=== PATIENT | female | born 1985 | race Caucasian/White ===

== ENCOUNTER 2016-07-14 11:02 | Emergency (ER) | payer SELFPAY ==
[2016-07-14] MEDS ORDERED: Sodium Chloride 0.9% 2.5 ML Syringe FLUSH PRN (11:20)
[2016-07-14] MEDS ORDERED: Sodium Chloride 0.9% 1,000 ML IV ONE (11:20)
[2016-07-14] MEDS ORDERED: Ketorolac 30 MG/ML SDV IVPUSH ONE (11:20)
[2016-07-14] MEDS ORDERED: Ondansetron 4 MG/2 ML SDV IVPUSH ONE (11:20)
[2016-07-14] MEDS ORDERED: Sodium Chloride 0.9% 10 ML Syringe FLUSH PRN (11:20)
--- NOTE | 2016-07-14 11:22 | EDM.PDOC ---
ED HPI GENERAL MEDICAL PROBLEM - General Chief Complaint: Abdominal Pain Stated Complaint: STOMACH AND BACK PAIN Time Seen by Provider: 07/14/16 11:05 - History of Present Illness INITIAL COMMENTS - FREE TEXT/NARRATIVE: HISTORY AND PHYSICAL: History of present illness: Patient is 30-year-old white female history chronic back pain present since her right lower back pain and now radiates around her abdomen she took Motrin for this and states this is worse in she states she's had nausea associated with this she denies vomiting she denies vaginal discharge or other bleeding urinary symptoms denies other trauma concern recently. She denies states her last normal menstrual period was one week prior patient denies incontinence or retention of bowel or bladder denies numbness or weakness Review of systems: As per history of present illness and below otherwise all systems reviewed and negative. Past medical history: As per history of present illness and as reviewed below otherwise noncontributory. Surgical history: As per history of present illness and as reviewed below otherwise noncontributory. Social history: No reported history of drug or alcohol abuse. Family history: As per history of present illness and as reviewed below otherwise noncontributory. Physical exam: HEENT: Atraumatic, normocephalic, pupils reactive, negative for conjunctival pallor or scleral icterus, mucous membranes moist, throat clear, neck supple, nontender, trachea midline. Lungs: Clear to auscultation, breath sounds equal bilaterally, chest nontender. Heart: S1S2, regular, negative for clicks, rubs, or JVD. Abdomen: Soft, nondistended, no localized tenderness. Negative for masses or hepatosplenomegaly. Negative for costovertebral tenderness. Pelvis: Stable nontender. Genitourinary: Deferred. Rectal: Deferred. Extremities: Atraumatic, negative for cords or calf pain. Neurovascular unremarkable. Neuro: Awake, alert, oriented. Cranial nerves II through XII unremarkable. Cerebellum unremarkable. Motor and sensory unremarkable throughout. Exam nonfocal. Back: Patient some mild tenderness in paravertebral region at the low lumbar spine no vertebral body or point tenderness motor and sensory are normal based able stand on her toes back on her heels deep tendon reflexes are normal Diagnostics: CBC CMP UA hCG CT abdomen and Therapeutics: Normal saline 1 L bolus Zofran 4 mg IV Toradol 30 mg IV Impression: #1 chronic back pain with acute exacerbation #2 abdominal pain Definitive disposition and diagnosis as appropriate pending reevaluation and review of above. back Pain Score (Numeric/FACES): 10 - Related Data Allergies Allergy/AdvReac Type Severity Reaction Status Date / Time No Known Allergies Allergy Verified 07/14/16 11:14 Home Meds: Home Meds . [No Known Home Meds] 07/14/16 [History] ED ROS GENERAL - Review of Systems Review Of Systems: ROS reveals no pertinent complaints other than HPI. ED EXAM, GENERAL - Physical Exam Exam: See Below (See dictation) Course - Vital Signs Last Recorded V/S: Last Vital Signs Temp 36.4 C 07/14/16 11:17 Pulse 54 L 07/14/16 11:51 Resp 19 07/14/16 11:51 BP 148/94 H 07/14/16 11:51 Pulse Ox 100 07/14/16 11:51 - Orders/Labs/Meds Orders: Active Orders 24 hr Category Date Time Status Abdomen Pelvis wo Cont [CT] Stat Exams 07/14/16 11:20 Taken Sodium Chloride 0.9% [Saline Flush] Med 07/14/16 11:20 Active 10 ml FLUSH ASDIRECTED PRN Sodium Chloride 0.9% [Saline Flush] Med 07/14/16 11:20 Active 2.5 ml FLUSH ASDIRECTED PRN Saline Lock Insert [OM.PC] Stat Oth 07/14/16 11:19 Ordered Medication Orders Sodium Chloride (Saline Flush) 10 ml FLUSH ASDIRECTED PRN PRN Reason: Keep Vein Open Sodium Chloride (Saline Flush) 2.5 ml FLUSH ASDIRECTED PRN PRN Reason: Keep Vein Open Labs: Laboratory Tests 07/14/16 07/14/16 07/14/16 Range/Units 11:25 11:25 11:41 WBC 11.32 H (4.0-11.0) K/uL RBC 5.44 (4.30-5.90) M/uL Hgb 16.3 H (12.0-16.0) g/dL Hct 48.2 H (36.0-46.0) % MCV 88.6 (80.0-98.0) fL MCH 30.0 (27.0-32.0) pg MCHC 33.8 (31.0-37.0) g/dL RDW Std Deviation 43.3 (28.0-62.0) fl RDW Coeff of Cristina 13 (11.0-15.0) % Plt Count 256 (150-400) K/uL MPV 10.00 (7.40-12.00) fL Neut % (Auto) 65.9 (48.0-80.0) % Lymph % (Auto) 24.3 (16.0-40.0) % [place] % (Auto) 6.8 (0.0-15.0) % Eos % (Auto) 2.6 (0.0-7.0) % Baso % (Auto) 0.4 (0.0-1.5) % Neut # (Auto) 7.5 H (1.4-5.7) K/uL Lymph # (Auto) 2.8 H (0.6-2.4) K/uL [place] # (Auto) 0.8 (0.0-0.8) K/uL Eos # (Auto) 0.3 (0.0-0.7) K/uL Baso # (Auto) 0.0 (0.0-0.1) K/uL Nucleated RBC % 0.0 /100WBC Nucleated RBCs # 0 K/uL Sodium (136-146) mmol/L Potassium (3.5-5.1) mmol/L Chloride (98-110) mmol/L Carbon Dioxide (21-31) mmol/L BUN (6.0-23.0) mg/dL Creatinine (0.6-1.5) mg/dL Est Cr Clr Drug Dosing mL/min Estimated GFR (MDRD) ml/min Glucose (60-110) mg/dL Calcium (8.8-10.8) mg/dL Total Bilirubin (0.1-1.5) mg/dL AST (5-40) IU/L ALT (8-54) IU/L Alkaline Phosphatase (40-150) Total Protein (6.0-8.0) g/dL Albumin (3.5-5.0) g/dL Globulin (2.0-3.5) g/dL Albumin/Globulin Ratio (1.3-2.8) HCG, Qual (NEG) Urine Color YELLOW Urine Appearance CLEAR Urine pH 6.0 (5.0-8.0) Ur Specific Dorr 1.025 (1.001-1.035) Urine Protein TRACE (NEGATIVE) mg/dL Urine Glucose (UA) NEGATIVE (NEGATIVE) mg/dL Urine Ketones NEGATIVE (NEGATIVE) mg/dL Urine Occult Blood MODERATE (NEGATIVE) Urine Nitrite NEGATIVE (NEGATIVE) Urine Bilirubin NEGATIVE (NEGATIVE) Urine Urobilinogen 0.2 (<2.0) EU/dL Ur Leukocyte Esterase TRACE (NEGATIVE) Urine RBC 6-8 (0-2/HPF) Urine WBC 0-2 (0-5/HPF) Ur Epithelial Cells FEW (NONE-FEW) Urine Bacteria FEW (NEGATIVE) Urine Opiates Screen NEGATIVE (NEGATIVE) Ur Oxycodone Screen NEGATIVE (NEGATIVE) Urine Methadone Screen NEGATIVE (NEGATIVE) Ur Barbiturates Screen NEGATIVE (NEGATIVE) Ur Phencyclidine Scrn NEGATIVE (NEGATIVE) Ur Amphetamine Screen NEGATIVE (NEGATIVE) U Methamphetamines Scrn NEGATIVE (NEGATIVE) U Benzodiazepines Scrn NEGATIVE (NEGATIVE) U Cocaine Metab Screen NEGATIVE (NEGATIVE) U Marijuana (THC) Screen POSITIVE (NEGATIVE) 07/14/16 07/14/16 Range/Units 11:41 11:41 WBC (4.0-11.0) K/uL RBC (4.30-5.90) M/uL Hgb (12.0-16.0) g/dL Hct (36.0-46.0) % MCV (80.0-98.0) fL MCH (27.0-32.0) pg MCHC (31.0-37.0) g/dL RDW Std Deviation (28.0-62.0) fl RDW Coeff of Cristina (11.0-15.0) % Plt Count (150-400) K/uL MPV (7.40-12.00) fL Neut % (Auto) (48.0-80.0) % Lymph % (Auto) (16.0-40.0) % [place] % (Auto) (0.0-15.0) % Eos % (Auto) (0.0-7.0) % Baso % (Auto) (0.0-1.5) % Neut # (Auto) (1.4-5.7) K/uL Lymph # (Auto) (0.6-2.4) K/uL [place] # (Auto) (0.0-0.8) K/uL Eos # (Auto) (0.0-0.7) K/uL Baso # (Auto) (0.0-0.1) K/uL Nucleated RBC % /100WBC Nucleated RBCs # K/uL Sodium 140 (136-146) mmol/L Potassium 4.4 (3.5-5.1) mmol/L Chloride 111 H (98-110) mmol/L Carbon Dioxide 15 L (21-31) mmol/L BUN 14 (6.0-23.0) mg/dL Creatinine 0.9 (0.6-1.5) mg/dL Est Cr Clr Drug Dosing 82.99 mL/min Estimated GFR (MDRD) > 60.0 ml/min Glucose 104 (60-110) mg/dL Calcium 9.2 (8.8-10.8) mg/dL Total Bilirubin 0.2 (0.1-1.5) mg/dL AST 33 (5-40) IU/L ALT 45 (8-54) IU/L Alkaline Phosphatase 68 (40-150) Total Protein 8.6 H (6.0-8.0) g/dL Albumin 4.7 (3.5-5.0) g/dL Globulin 3.9 H (2.0-3.5) g/dL Albumin/Globulin Ratio 1.2 L (1.3-2.8) HCG, Qual NEGATIVE (NEG) Urine Color Urine Appearance Urine pH (5.0-8.0) Ur Specific Dorr (1.001-1.035) Urine Protein (NEGATIVE) mg/dL Urine Glucose (UA) (NEGATIVE) mg/dL Urine Ketones (NEGATIVE) mg/dL Urine Occult Blood (NEGATIVE) Urine Nitrite (NEGATIVE) Urine Bilirubin (NEGATIVE) Urine Urobilinogen (<2.0) EU/dL Ur Leukocyte Esterase (NEGATIVE) Urine RBC (0-2/HPF) Urine WBC (0-5/HPF) Ur Epithelial Cells (NONE-FEW) Urine Bacteria (NEGATIVE) Urine Opiates Screen (NEGATIVE) Ur Oxycodone Screen (NEGATIVE) Urine Methadone Screen (NEGATIVE) Ur Barbiturates Screen (NEGATIVE) Ur Phencyclidine Scrn (NEGATIVE) Ur Amphetamine Screen (NEGATIVE) U Methamphetamines Scrn (NEGATIVE) U Benzodiazepines Scrn (NEGATIVE) U Cocaine Metab Screen (NEGATIVE) U Marijuana (THC) Screen (NEGATIVE) Meds: Medications Generic Name Dose Route Start Last Admin Trade Name Freq PRN Reason Stop Dose Admin Sodium Chloride 10 ml 07/14/16 11:20 Saline Flush FLUSH ASDIRECTED PRN Keep Vein Open Sodium Chloride 2.5 ml 07/14/16 11:20 Saline Flush FLUSH ASDIRECTED PRN Keep Vein Open Discontinued Medications Generic Name Dose Route Start Last Admin Trade Name Rowan PRN Reason Stop Dose Admin Sodium Chloride 1,000 mls @ 999 mls/hr 07/14/16 11:20 07/14/16 11:44 Normal Saline IV 07/14/16 12:20 999 mls/hr STAT ONE Administration Ketorolac Tromethamine 30 mg 07/14/16 11:20 07/14/16 11:45 Toradol IVPUSH 07/14/16 11:21 30 mg ONETIME ONE Administration Ketorolac Tromethamine 15 mg 07/14/16 12:22 07/14/16 12:25 Toradol IVPUSH 07/14/16 12:23 15 mg STAT ONE Administration Ondansetron HCl 4 mg 07/14/16 11:20 07/14/16 11:45 Zofran IVPUSH 07/14/16 11:21 4 mg ONETIME ONE Administration Departure - Departure Time of Disposition: 13:18 Disposition: Home, Self-Care 01 Condition: good Clinical Impression: Ureterolithiasis - Discharge Information Referrals: PCP,None [Primary Care Provider] - Forms: ED Department Discharge Additional Instructions: The following information is given to patients seen in the emergency department who are being discharged to home. This information is to outline your options for follow-up care. We provide all patients seen in our emergency department with a follow-up referral. The need for follow-up, as well as the timing and circumstances, are variable depending upon the specifics of your emergency department visit. If you don't have a primary care physician on staff, we will provide you with a referral. We always advise you to contact your personal physician following an emergency department visit to inform them of the circumstance of the visit and for follow-up with them and/or the need for any referrals to a consulting specialist. The emergency department will also refer you to a specialist when appropriate. This referral assures that you have the opportunity for followup care with a specialist. All of these measure are taken in an effort to provide you with optimal care, which includes your followup. Under all circumstances we always encourage you to contact your private physician who remains a resource for coordinating your care. When calling for followup care, please make the office aware that this follow-up is from your recent emergency room visit. If for any reason you are refused follow-up, please contact the [facility] emergency department at and asked to speak to the emergency department charge nurse. [facility] Specialty Care - Urology [address] [place] [id number] Hydrocodone Zofran Flomax as prescribed call schedule routine appointment with urology about return as needed as discussed - My Orders Last 24 Hours: My Active Orders 07/14/16 11:19 Saline Lock Insert [OM.PC] Stat 07/14/16 11:20 Abdomen Pelvis wo Cont [CT] Stat Sodium Chloride 0.9% [Saline Flush] 10 ml FLUSH ASDIRECTED PRN Sodium Chloride 0.9% [Saline Flush] 2.5 ml FLUSH ASDIRECTED PRN - Assessment/Plan Last 24 Hours: My Active Orders 07/14/16 11:19 Saline Lock Insert [OM.PC] Stat 07/14/16 11:20 Abdomen Pelvis wo Cont [CT] Stat Sodium Chloride 0.9% [Saline Flush] 10 ml FLUSH ASDIRECTED PRN Sodium Chloride 0.9% [Saline Flush] 2.5 ml FLUSH ASDIRECTED PRN
[2016-07-14 12:22] LABS: CHLORIDE,CL 111 mmol/L (98-110); SODIUM,NA 140 mmol/L (136-146)
[2016-07-14] MEDS ORDERED: Ketorolac 15 MG/ML SDV IVPUSH ONE (12:22)
[2016-07-14 13:50] VITALS: BP 136/97
--- NOTE | 2016-07-15 14:08 | CT ---
EXAM DATE: 07/14/16 PATIENT'S AGE: 30 Patient: MJ BERNAL Facility: [place], [place] Site . Site : [id number] Study: CT Abdomen/Pelvis -07/14/2016 12:44:35 PM Ordering Physician: Sejal Johnson Final Report: HISTORY: Sudden onset right flank pain. Technique: CT abdomen pelvis without contrast. Comparison: None. Findings: Urinary system: 5 mm calculus at the right ureterovesical junction. Moderate right hydronephrosis. A few punctate nonobstructing left renal calculi that measure up to 2 mm in size. No left ureteral calculi. No left collecting system dilation. Abdomen: Heterogeneous decreased density of the liver consistent with fatty infiltration. Calcified granulomas in the spleen. Gallbladder and pancreas are unremarkable. Adrenal glands are unremarkable. No dilated bowel. Appendix is normal. No ascites. No free intraperitoneal gas. No lymphadenopathy. No abdominal aortic aneurysm. Pelvis: No free fluid. No lymphadenopathy. Musculoskeletal: Remote posttraumatic deformity of the lateral right ribs. Lower chest: Lung bases are clear. Impression: 1. 5 mm calculus at the right ureterovesical junction with moderate hydronephrosis. 2. Punctate nonobstructing left renal calculi. 3. Fatty infiltration of the liver. Please note that all CT scans at this facility use dose modulation, iterative reconstruction, and/or weight-based dosing when appropriate to reduce radiation dose to as low as reasonably achievable. Dictated by Mateusz Evans MD @ Jul 14 2016 1:02PM (Electronic Signature) Report Signed by Proxy. [facility] SYSTEMTyson
== END 2016-07-14 13:45 | disposition home or self-care (01) ==
LOC: MW.ED 11:02
DX: N20.1 Calculus of ureter (principal)
CPT/HCPCS: 36415; 74176; 80053; 80305; 81001; 84703; 85025; 96361; 96374; 96375; 96376; 99284; J1885; J2405; J7040

== ENCOUNTER 2016-10-01 08:12 | Emergency (ER) | payer SELFPAY ==
[2016-10-01] MEDS ORDERED: Ketorolac 30 MG/ML SDV IVPUSH ONE (08:30)
--- NOTE | 2016-10-01 08:39 | EDM.PDOC ---
<Feroz Lerner - Last Filed: 10/01/16 10:40> ED HPI GENERAL MEDICAL PROBLEM - General Chief Complaint: Back Pain or Injury Stated Complaint: BACK PAIN Time Seen by Provider: 10/01/16 08:14 - History of Present Illness INITIAL COMMENTS - FREE TEXT/NARRATIVE: HISTORY AND PHYSICAL: History of present illness: The 30-year-old female presenting to the emergency department with chief complaint of back pain after a fall. Patient tells me that last night she had a fall walking down her staircase outside. She'll down 3 steps. She immediately began to experience lower back pain that is non-radiating. She has been able to walk after the incident. She denies any urinary/bowel issues after the incident. Denies any numbness or tingling. Denies shortness of breath, nausea, or vomiting. Review of systems: As per history of present illness and below otherwise all systems reviewed and negative. Past medical history: As per history of present illness and as reviewed below otherwise noncontributory. Surgical history: As per history of present illness and as reviewed below otherwise noncontributory. Social history: No reported history of drug or alcohol abuse. Family history: As per history of present illness and as reviewed below otherwise noncontributory. Physical exam: HEENT: Atraumatic, normocephalic, pupils reactive, negative for conjunctival pallor or scleral icterus, mucous membranes moist, throat clear, neck supple, nontender, trachea midline. Lungs: Clear to auscultation, breath sounds equal bilaterally, chest nontender. Heart: S1S2, regular, negative for clicks, rubs, or JVD. Abdomen: Soft, nondistended, nontender. Negative for masses or hepatosplenomegaly. Negative for costovertebral tenderness. Spine: No spinal tenderness to palpation. No paraspinal tenderness. Negative SLR. Normal gait. Extremities: Atraumatic, negative for cords or calf pain. Neurovascular unremarkable. Neuro: Awake, alert, oriented. Cranial nerves II through XII unremarkable. Cerebellum unremarkable. Motor and sensory unremarkable throughout. Exam nonfocal. Diagnostics: Lumbar Spine X-ray B-hcg [employer]rapeutics: IM Toradol 30mg once Impression: Lumbosacral strain Plan: Discharge home. Follow up with PCP within 1 week. Lower Back Pain Score (Numeric/FACES): 10 - Related Data Allergies Allergy/AdvReac Type Severity Reaction Status Date / Time No Known Allergies Allergy Verified 10/01/16 08:13 Home Meds: Home Meds Orphenadrine [Norflex] 100 mg PO BID #15 tab.er 10/01/16 [Rx] Past Medical History HEENT History: Reports: None Cardiovascular History: Reports: None Respiratory History: Reports: None Gastrointestinal History: Reports: None Genitourinary History: Reports: None Musculoskeletal History: Reports: Other (See Below) Other Musculoskeletal History: lumbar problem Psychiatric History: Reports: None Dermatologic History: Reports: None - Infectious Disease History Infectious Disease History: Reports: Chicken Pox - Past Surgical History HEENT Surgical History: Reports: None Cardiovascular Surgical History: Reports: None Social & Family History - Family History Family Medical History: Noncontributory - Tobacco Use Smoking Status *Q: Current Every Day Smoker Years of Tobacco use: 10 Packs/Tins Daily: 0.2 - Caffeine Use Caffeine Use: Reports: Energy Drinks - Recreational Drug Use Recreational Drug Use: No ED ROS GENERAL - Review of Systems Review Of Systems: See Below ED EXAM,LOWER BACK PAIN/INJURY - Physical Exam Exam: See Below Course - Vital Signs Last Recorded V/S: Last Vital Signs Temp 36.5 C 10/01/16 08:14 Pulse 82 10/01/16 09:53 Resp 18 10/01/16 09:53 BP 130/85 10/01/16 09:53 Pulse Ox 99 10/01/16 09:53 - Orders/Labs/Meds Labs: Laboratory Tests 10/01/16 Range/Units 08:47 Urine HCG, Qual NEGATIVE (NEGATIVE) Meds: Medications Discontinued Medications Generic Name Dose Route Start Last Admin Trade Name Rowan PRN Reason Stop Dose Admin Ketorolac Tromethamine 30 mg 10/01/16 08:30 10/01/16 08:43 Toradol IVPUSH 10/01/16 08:31 30 mg ONETIME ONE Administration Departure - Departure Time of Disposition: 10:40 Disposition: Home, Self-Care 01 Condition: Good Clinical Impression: Pain of paraspinal muscle - Discharge Information Prescriptions: Orphenadrine [Norflex] 100 mg PO BID #15 tab.er Instructions: Muscle Cramps and Spasms, [id number] Referrals: PCP,None [Primary Care Provider] - Forms: ED Department Discharge Additional Instructions: The following information is given to patients seen in the emergency department who are being discharged to home. This information is to outline your options for follow-up care. We provide all patients seen in our emergency department with a follow-up referral. The need for follow-up, as well as the timing and circumstances, are variable depending upon the specifics of your emergency department visit. If you don't have a primary care physician on staff, we will provide you with a referral. We always advise you to contact your personal physician following an emergency department visit to inform them of the circumstance of the visit and for follow-up with them and/or the need for any referrals to a consulting specialist. The emergency department will also refer you to a specialist when appropriate. This referral assures that you have the opportunity for follow-up care with a specialist. All of these measure are taken in an effort to provide you with optimal care, which includes your follow-up. Under all circumstances we always encourage you to contact your private physician who remains a resource for coordinating your care. When calling for follow-up care, please make the office aware that this follow-up is from your recent emergency room visit. If for any reason you are refused follow-up, please contact the [facility] Emergency Department at and asked to speak to the emergency department charge nurse. Please follow up with her primary care provider within one week. Please take prescription as prescribed. She experienced any fevers chills worsening back pain, coronary numbness tingling, or any difficulty urinating please return back to seek further medical attention. <Roshni Guillen - Last Filed: 10/01/16 10:56> ED HPI GENERAL MEDICAL PROBLEM - History of Present Illness INITIAL COMMENTS - FREE TEXT/NARRATIVE: I have seen and discussed this patient with Dr. Lerner and agree with the above.
--- NOTE | 2016-10-01 10:40 | CR ---
Three-view lumbar spine Pedicles are intact to discs are well-maintained and vertebral bodies are of normal stature. There i s no spondylolysis or spondylolisthesis. There is a very gentle leftward convex scoliosis apex at L3 that may be positional Impression: No significant abnormalities
[2016-10-01 11:00] VITALS: BP 143/80
== END 2016-10-01 10:57 | disposition home or self-care (01) ==
LOC: MW.ED 08:12
DX: S39.012A Strain of muscle, fascia and tendon of lower back, initial encounter (principal); F17.210 Nicotine dependence, cigarettes, uncomplicated; W10.8XXA Fall (on) (from) other stairs and steps, initial encounter
CPT/HCPCS: 72100; 81025; 96374; 99284; J1885; 99283

== ENCOUNTER 2018-09-07 18:28 | Emergency (ER) | payer SELFPAY ==
--- NOTE | 2018-09-07 18:35 | EDM.PDOC ---
ED HPI GENERAL MEDICAL PROBLEM - General Stated Complaint: STROKE Time Seen by Provider: 09/07/18 18:30 - History of Present Illness INITIAL COMMENTS - FREE TEXT/NARRATIVE: HISTORY AND PHYSICAL: History of present illness: Patient 32-year-old white female who presents with carpal pedal spasm and anxiety she's had similar episode in the past and has been diagnosed with conversion reaction. She denies chest pain short breath other concern she has quite cognizant that this may very well represent anxiety and similar episode prior. She does agree to some routine testing while she's here Review of systems: As per history of present illness and below otherwise all systems reviewed and negative. Past medical history: As per history of present illness and as reviewed below otherwise noncontributory. Surgical history: As per history of present illness and as reviewed below otherwise noncontributory. Social history: No reported history of drug or alcohol abuse. Family history: As per history of present illness and as reviewed below otherwise noncontributory. Physical exam: HEENT: Atraumatic, normocephalic, pupils reactive, negative for conjunctival pallor or scleral icterus, mucous membranes moist, throat clear, neck supple, nontender, trachea midline. Lungs: Clear to auscultation, breath sounds equal bilaterally, chest nontender. Heart: S1S2, regular, negative for clicks, rubs, or JVD. Abdomen: Soft, nondistended, nontender. Negative for masses or hepatosplenomegaly. Negative for costovertebral tenderness. Pelvis: Stable nontender. Genitourinary: Deferred. Rectal: Deferred. Extremities: Atraumatic, negative for cords or calf pain. Neurovascular unremarkable. Carpopedal spasm noted bilateral upper extremities Neuro: Awake, alert, oriented. Cranial nerves II through XII unremarkable. Cerebellum unremarkable. Motor and sensory unremarkable throughout. Exam nonfocal. Diagnostics: CBC CMP EKG Therapeutics: Ativan 1 mg IV Impression: #1 acute anxiety with carpopedal spasm Definitive disposition and diagnosis as appropriate pending reevaluation and review of above. - Related Data Allergies Allergy/AdvReac Type Severity Reaction Status Date / Time aspirin Allergy Other Verified 09/07/18 18:37 Home Meds: Home Meds Ibuprofen 6 tab PO DAILY PRN 09/21/17 [History] hydrOXYzine pamoate [Hydroxyzine Pamoate] 50 mg PO TID PRN 09/07/18 [History] Past Medical History HEENT History: Reports: None Cardiovascular History: Reports: None Respiratory History: Reports: None Gastrointestinal History: Reports: None Genitourinary History: Reports: None Musculoskeletal History: Reports: Other (See Below) Other Musculoskeletal History: lumbar problem Neurological History: Reports: Other (See Below) 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 ED EXAM, GENERAL - Physical Exam Exam: See Below (See dictation) Course - Vital Signs Last Recorded V/S: Last Vital Signs Temp 36.6 C 09/07/18 18:33 Pulse 85 09/07/18 18:33 Resp 16 09/07/18 18:33 BP 181/95 H 09/07/18 18:33 Pulse Ox 99 09/07/18 18:33 - Orders/Labs/Meds Orders: Active Orders 24 hr Category Date Time Status EKG 12 Lead [EKG Documentation Completion] [RC] STAT Care 09/07/18 18:35 Active CBC WITH AUTO DIFF [HEME] Stat Lab 09/07/18 18:45 Received COMPREHENSIVE METABOLIC PN,CMP [CHEM] Stat Lab 09/07/18 18:45 Received Sodium Chloride 0.9% [Saline Flush] Med 09/07/18 18:36 Active 10 ml FLUSH ASDIRECTED PRN Sodium Chloride 0.9% [Saline Flush] Med 09/07/18 18:36 Active 2.5 ml FLUSH ASDIRECTED PRN Saline Lock Insert [OM.PC] Stat Oth 09/07/18 18:36 Ordered Medication Orders Sodium Chloride (Saline Flush) 10 ml FLUSH ASDIRECTED PRN PRN Reason: Keep Vein Open Last Admin: 09/07/18 18:49 Dose: 10 ml Sodium Chloride (Saline Flush) 2.5 ml FLUSH ASDIRECTED PRN PRN Reason: Keep Vein Open Last Admin: 09/07/18 18:49 Dose: 2.5 ml Meds: Medications Generic Name Dose Route Start Last Admin Trade Name Freq PRN Reason Stop Dose Admin Sodium Chloride 10 ml 09/07/18 18:36 09/07/18 18:49 Saline Flush FLUSH 10 ml ASDIRECTED PRN Administration Keep Vein Open Sodium Chloride 2.5 ml 09/07/18 18:36 09/07/18 18:49 Saline Flush FLUSH 2.5 ml ASDIRECTED PRN Administration Keep Vein Open Discontinued Medications Generic Name Dose Route Start Last Admin Trade Name Freq PRN Reason Stop Dose Admin Lorazepam 1 mg 09/07/18 18:36 09/07/18 18:48 Ativan IVPUSH 09/07/18 18:37 1 mg ONETIME ONE Administration Departure - Departure Time of Disposition: 18:59 Disposition: Home, Self-Care 01 Condition: Good Clinical Impression: Anxiety, Carpopedal spasm - Discharge Information Additional Instructions: The following information is given to patients seen in the emergency department who are being discharged to home. This information is to outline your options for follow-up care. We provide all patients seen in our emergency department with a follow-up referral. The need for follow-up, as well as the timing and circumstances, are variable depending upon the specifics of your emergency department visit. If you don't have a primary care physician on staff, we will provide you with a referral. We always advise you to contact your personal physician following an emergency department visit to inform them of the circumstance of the visit and for follow-up with them and/or the need for any referrals to a consulting specialist. The emergency department will also refer you to a specialist when appropriate. This referral assures that you have the opportunity for followup care with a specialist. All of these measure are taken in an effort to provide you with optimal care, which includes your followup. Under all circumstances we always encourage you to contact your private physician who remains a resource for coordinating your care. When calling for followup care, please make the office aware that this follow-up is from your recent emergency room visit. If for any reason you are refused follow-up, please contact the [facility] emergency department at and asked to speak to the emergency department charge nurse. Continue current medications follow-up private medical doctor return as needed as discussed - My Orders Last 24 Hours: My Active Orders 09/07/18 18:35 EKG 12 Lead [EKG Documentation Completion] [RC] STAT 09/07/18 18:36 Sodium Chloride 0.9% [Saline Flush] 10 ml FLUSH ASDIRECTED PRN Sodium Chloride 0.9% [Saline Flush] 2.5 ml FLUSH ASDIRECTED PRN Saline Lock Insert [OM.PC] Stat 09/07/18 18:45 CBC WITH AUTO DIFF [HEME] Stat COMPREHENSIVE METABOLIC PN,CMP [CHEM] Stat - Assessment/Plan Last 24 Hours: My Active Orders 09/07/18 18:35 EKG 12 Lead [EKG Documentation Completion] [RC] STAT 09/07/18 18:36 Sodium Chloride 0.9% [Saline Flush] 10 ml FLUSH ASDIRECTED PRN Sodium Chloride 0.9% [Saline Flush] 2.5 ml FLUSH ASDIRECTED PRN Saline Lock Insert [OM.PC] Stat 09/07/18 18:45 CBC WITH AUTO DIFF [HEME] Stat COMPREHENSIVE METABOLIC PN,CMP [CHEM] Stat
[2018-09-07] MEDS ORDERED: LORazepam 2 MG/ML SDV IVPUSH ONE (18:36)
[2018-09-07] MEDS ORDERED: Sodium Chloride 0.9% 10 ML Syringe FLUSH PRN (18:36)
[2018-09-07] MEDS ORDERED: Sodium Chloride 0.9% 2.5 ML Syringe FLUSH PRN (18:36)
[2018-09-07 19:23] LABS: CHLORIDE,CL 105 mmol/L (98-107); SODIUM,NA 139 mmol/L (136-145)
[2018-09-07 23:44] VITALS: BP 171/121
== END 2018-09-07 20:14 | disposition home or self-care (01) ==
LOC: MW.ED 18:28
DX: R29.0 Tetany (principal); F41.9 Anxiety disorder, unspecified; Z88.6 Allergy status to analgesic agent; Z79.899 Other long term (current) drug therapy
CPT/HCPCS: 36415; 80053; 85025; 93005; 96374; 99283; J2060

== ENCOUNTER 2019-03-17 15:05 | Emergency (ER) | payer MEDICAID ==
--- NOTE | 2019-03-17 15:30 | EDM.PDOC ---
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 Patient states that she had intercourse on Thursday. On Thursday night, she had vaginal bleeding with the passage of clots and tissue. Since that time , she has had light vaginal spotting, but, today, again had the passage of a small amount of clots along with lower abdominal crampy pain. Patient has chronic mild back pain. Denies any syncope. No chest pain dyspnea, vomiting or diarrhea. Denies any urinary symptoms. No diarrhea or constipation. No melena hematochezia. No recent fevers or chills. 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 REVIEW OF SYSTEMS: Other than the symptoms associated with the present events, the following is reported with regard to recent health: General: (-) fever. HENT: (-) congestion. Respiratory: (-) cough. Cardiovascular: (-) chest pain. GI: (+) crampy lower pelvic pain. : (-) urinary complaints. (+) vaginal bleeding Musculoskeletal: (-) other aches or pains. Endocrine: (-) generalized weakness. Neurological: (-) localized weakness. Skin: (-) rash PAST MEDICAL HISTORY: reviewed as per nursing notes SOCIAL HISTORY: reviewed as per nursing notes, MEDICATIONS: Per nurse's note ALLERGIES: Per nurse's note, reviewed by me PHYSICAL EXAMINATION: GENERALIZED APPEARANCE: well developed, well nourished in no distress VITAL SIGNS: Per nurse's note, reviewed by me SKIN: Warm, dry; (-) cyanosis; (-) rash. HEAD: (-) scalp swelling, (-) tenderness. EYES: (-) conjunctival pallor, (-) scleral icterus. ENMT: (-) stridor; mucous membranes moist. NECK: (-) tenderness, (-) stiffness, CHEST AND RESPIRATORY: (-) rales, (-) rhonchi, (-) wheezes; breath sounds equal bilaterally. HEART AND CARDIOVASCULAR: (-) irregularity; (-) murmur, (-) gallop. ABDOMEN AND GI: Soft; (-) tenderness, (-) guarding, (-) rebound, (-) palpable masses, EXTREMITIES: (-) deformity, (-) edema. NEURO AND PSYCH: Alert. Cranial nerves grossly intact; strength symmetric. gait steady DIAGNOSTICS: ultrasound: read by radiologist, reviewed by myself EMERGENCY DEPARTMENT COURSE AND TREATMENT: Patient's condition remained stable during Emergency Department evaluation. ultrasound demonstrating live IUP with fhr of 104 bpm. Pt hemodynamicaly stable. Rh positive. Pt with threatened miscarriage, given discharge precautions and instructions. PLAN AND FOLLOW-UP: Patient received written and verbal instructions regarding this condition. Return to ED immediately with any new or worsening symptoms. Follow up to be arranged by patient with OB in 1-2 days for further evaluation. Given discharge precautions. Patient expressed verbal understanding. Back Pain Score (Numeric/FACES): 6 - Related Data Allergies Allergy/AdvReac Type Severity Reaction Status Date / Time aspirin Allergy Other Verified 03/17/19 15:23 latex Allergy Itching Verified 03/17/19 15:23 Home Meds: Home Meds . 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 Psychiatric History: Reports: None Dermatologic History: Reports: None - Infectious Disease History Infectious Disease History: Reports: Chicken Pox - Past Surgical History HEENT Surgical History: Reports: None Cardiovascular Surgical History: Reports: None Social & Family History - Family History Family Medical History: Noncontributory - Tobacco Use Smoking Status *Q: Current Every Day Smoker Years of Tobacco use: 12 Packs/Tins Daily: 0.5 - Caffeine Use Caffeine Use: Reports: Energy Drinks ED ROS GENERAL - Review of Systems Review Of Systems: See Below (see dictation) ED EXAM, GENERAL - Physical Exam Exam: See Below (see dictation) Course - Vital Signs Last Recorded V/S: Last Vital Signs Temp 97.7 F 03/17/19 15:19 Pulse 90 03/17/19 15:19 Resp 16 03/17/19 15:19 BP 149/90 H 03/17/19 15:19 Pulse Ox 98 03/17/19 15:19 - Orders/Labs/Meds Orders: Active Orders 24 hr Category Date Time Status Pelvic Exam, Set Up [RC] ASDIRECTED Care 03/17/19 15:30 Active Labs: Laboratory Tests 03/17/19 03/17/19 03/17/19 Range/Units 15:26 15:26 15:52 WBC 12.28 H (4.0-11.0) K/uL RBC 4.86 (4.30-5.90) M/uL Hgb 14.5 (12.0-16.0) g/dL Hct 43.6 (36.0-46.0) % MCV 89.7 (80.0-98.0) fL MCH 29.8 (27.0-32.0) pg MCHC 33.3 (31.0-37.0) g/dL RDW Std Deviation 45.0 (28.0-62.0) fl RDW Coeff of Cristina 14 (11.0-15.0) % Plt Count 251 (150-400) K/uL MPV 9.70 (7.40-12.00) fL Neut % (Auto) 70.0 (48.0-80.0) % Lymph % (Auto) 21.0 (16.0-40.0) % [place] % (Auto) 6.4 (0.0-15.0) % Eos % (Auto) 2.2 (0.0-7.0) % Baso % (Auto) 0.4 (0.0-1.5) % Neut # (Auto) 8.6 H (1.4-5.7) K/uL Lymph # (Auto) 2.6 H (0.6-2.4) K/uL [place] # (Auto) 0.8 (0.0-0.8) K/uL Eos # (Auto) 0.3 (0.0-0.7) K/uL Baso # (Auto) 0.1 (0.0-0.1) K/uL Nucleated RBC % 0.0 /100WBC Nucleated RBCs # 0 K/uL HCG, Quant mIU/mL Urine Color YELLOW Urine Appearance HAZY Urine pH 7.0 (5.0-8.0) Ur Specific [place] 1.025 (1.001-1.035) Urine Protein NEGATIVE (NEGATIVE) mg/dL Urine Glucose (UA) NEGATIVE (NEGATIVE) mg/dL Urine Ketones NEGATIVE (NEGATIVE) mg/dL Urine Occult Blood LARGE H (NEGATIVE) Urine Nitrite NEGATIVE (NEGATIVE) Urine Bilirubin NEGATIVE (NEGATIVE) Urine Urobilinogen 0.2 (<2.0) EU/dL Ur Leukocyte Esterase NEGATIVE (NEGATIVE) Urine RBC 3-8 (0-2/HPF) Urine WBC 0-3 (0-5/HPF) Ur Epithelial Cells OCCASIONAL (NONE-FEW) Urine Bacteria FEW (NEGATIVE) Urine HCG, Qual POSITIVE (NEGATIVE) Blood Type 03/17/19 03/17/19 Range/Units 15:52 15:52 WBC (4.0-11.0) K/uL RBC (4.30-5.90) M/uL Hgb (12.0-16.0) g/dL Hct (36.0-46.0) % MCV (80.0-98.0) fL MCH (27.0-32.0) pg MCHC (31.0-37.0) g/dL RDW Std Deviation (28.0-62.0) fl RDW Coeff of Cristina (11.0-15.0) % Plt Count (150-400) K/uL MPV (7.40-12.00) fL Neut % (Auto) (48.0-80.0) % Lymph % (Auto) (16.0-40.0) % [place] % (Auto) (0.0-15.0) % Eos % (Auto) (0.0-7.0) % Baso % (Auto) (0.0-1.5) % Neut # (Auto) (1.4-5.7) K/uL Lymph # (Auto) (0.6-2.4) K/uL [place] # (Auto) (0.0-0.8) K/uL Eos # (Auto) (0.0-0.7) K/uL Baso # (Auto) (0.0-0.1) K/uL Nucleated RBC % /100WBC Nucleated RBCs # K/uL HCG, Quant 855.0 mIU/mL Urine Color Urine Appearance Urine pH (5.0-8.0) Ur Specific [place] (1.001-1.035) Urine Protein (NEGATIVE) mg/dL Urine Glucose (UA) (NEGATIVE) mg/dL Urine Ketones (NEGATIVE) mg/dL Urine Occult Blood (NEGATIVE) Urine Nitrite (NEGATIVE) Urine Bilirubin (NEGATIVE) Urine Urobilinogen (<2.0) EU/dL Ur Leukocyte Esterase (NEGATIVE) Urine RBC (0-2/HPF) Urine WBC (0-5/HPF) Ur Epithelial Cells (NONE-FEW) Urine Bacteria (NEGATIVE) Urine HCG, Qual (NEGATIVE) Blood Type A POSITIVE Departure - Departure Time of Disposition: 17:01 Disposition: Home, Self-Care 01 Condition: Good Clinical Impression: Threatened miscarriage - Discharge Information *PRESCRIPTION DRUG MONITORING PROGRAM REVIEWED*: Not Applicable *COPY OF PRESCRIPTION DRUG MONITORING REPORT IN PATIENT HEENA: Not Applicable Instructions: Threatened Miscarriage, Vaginal Bleeding During , First Trimester Referrals: Greg Harvey MD [Primary Care Provider] - Forms: ED Department Discharge Additional Instructions: The following information is given to patients seen in the emergency department who are being discharged to home. This information is to outline your options for follow-up care. We provide all patients seen in our emergency department with a follow-up referral. The need for follow-up, as well as the timing and circumstances, are variable depending upon the specifics of your emergency department visit. If you don't have a primary care physician on staff, we will provide you with a referral. We always advise you to contact your personal physician following an emergency department visit to inform them of the circumstance of the visit and for follow-up with them and/or the need for any referrals to a consulting specialist. The emergency department will also refer you to a specialist when appropriate. This referral assures that you have the opportunity for follow-up care with a specialist. All of these measure are taken in an effort to provide you with optimal care, which includes your follow-up. Under all circumstances we always encourage you to contact your private physician who remains a resource for coordinating your care. When calling for follow-up care, please make the office aware that this follow-up is from your recent emergency room visit. If for any reason you are refused follow-up, please contact the [facility] Emergency Department at and asked to speak to the emergency department charge nurse. Sepsis Event Note - Evaluation Sepsis Screening Result: No Definite Risk - Focused Exam Vital Signs: Vital Signs Temp Pulse Resp BP Pulse Ox 03/17/19 15:19 97.7 F 90 16 149/90 H 98 Date Exam was Performed: 03/17/19 Time Exam was Performed: 17:05 - My Orders Last 24 Hours: My Active Orders 03/17/19 15:30 Pelvic Exam, Set Up [RC] ASDIRECTED - Assessment/Plan Last 24 Hours: My Active Orders 03/17/19 15:30 Pelvic Exam, Set Up [RC] ASDIRECTED
--- NOTE | 2019-03-17 16:59 | US ---
First trimester obstetrical ultrasound: Multiple real-time images were obtained transvaginally. Comparison: No prior obstetrical imaging for current . Dates: Current ultrasound: [facility] 11/13/19, gestational age 5 weeks 4 days Single intrauterine gestational sac is seen. Amniotic fluid volume is normal. Small pole and yolk sac are noted. No subchorionic hemorrhage is identified. Maternal ovaries are not visualized. Measurements: [place]-rump length: 0.26 cm - 5 weeks 6 days Mean sac diameter: 0.59 cm - 5 weeks 3 days Heart rate: 104 BPM Impression: 1. Single intrauterine gestational sac. Dates as noted above. 2. Heart rate of 104 BPM. This low heart rate is felt to relate to early gestational age. Diagnostic code #1 Study was dictated in [place] Standard Time
[2019-03-17 17:19] VITALS: BP 138/95; PULSE 84
== END 2019-03-17 17:18 | disposition home or self-care (01) ==
LOC: MW.ED 15:05
DX: O20.0 Threatened abortion (principal); O99.331 Smoking (tobacco) complicating pregnancy, first trimester; F17.210 Nicotine dependence, cigarettes, uncomplicated; Z3A.01 Less than 8 weeks gestation of pregnancy; Z88.6 Allergy status to analgesic agent; Z91.040 Latex allergy status
CPT/HCPCS: 36415; 76817; 76817-26; 81001; 81025; 84702; 85025; 86900; 86901; 99283; 99284-25